=== PATIENT | male | born 1965 | race Caucasian/White ===

== ENCOUNTER 2019-11-22 18:05 | Emergency (ER) | payer BC, SELFPAY ==
[2019-11-22 18:07] VITALS: BP 125/91; PULSE 84; RESP 16; TEMP 38.1; O2SAT 100
--- NOTE | 2019-11-22 19:21 | ED.EAR ---
HPI - Ear Problem General Chief complaint: Ear Stated complaint: left ear pain/fever Time Seen by Provider: 11/22/19 18:43 Source: patient Mode of arrival: ambulatory Limitations: no limitations History of Present Illness HPI Narrative: This is a 54-year-old male who presents the emergency department for left ear pain x2 days. Reports decreased hearing in the ear. Also reports some mild fever. Denies drainage. MD Complaint: decreased hearing Location: left ear Duration: constant Severity: mild Context: Reports recent swimming Discharge from ear: Reports no Associated symptoms ear: fever Treatment prior to arrival: none Related Data Home Medications Medication Instructions Recorded Confirmed No Home Medications 11/22/19 11/22/19 Allergies Allergy/AdvReac Type Severity Reaction Status Date / Time bee venom protein (honey bee) AdvReac Anaphylaxis Verified 11/22/19 18:18 [bees] Penicillins AdvReac Anaphylaxis Verified 11/22/19 18:18 Review of Systems Review of Systems: Narrative: CONSTITUTIONAL: Reports fever ENT: Reports otalgia. All systems reviewed & are unremarkable except as noted in HPI and below PMFSH Past Medical History Medical History (Updated 11/22/19 @ 19:29 by Gloria Montana PA-C) No active medical problems Social History Social History (Updated 11/22/19 @ 19:26 by Gloria Montana PA-C) Substance use: never Exam Narrative: Exam Narrative: GENERAL: Well-appearing, well-nourished, and in no acute distress. HEAD: Normocephalic, atraumatic. EYES: EOMI. ENT: Right external auditory canal normal. Left external auditory canal with erythema and edema NECK: Supple. No adenopathy or masses. EXTREMITIES: Normal range of motion. No edema. SKIN: Warm, dry, no rash. NEURO: No focal deficits. Alert and oriented x3. PSYCH: Normal mood and affect Course Vital Signs Vital signs: Vital Signs Temperature 100.5 F H 11/22/19 18:07 Pulse Rate 84 11/22/19 18:07 Respiratory Rate 16 11/22/19 18:07 Blood Pressure 125/91 H 11/22/19 18:07 Pulse Oximetry 100 11/22/19 18:07 Temperature 100.5 F H 11/22/19 18:07 Pulse Rate 84 11/22/19 18:07 Respiratory Rate 16 11/22/19 18:07 Blood Pressure 125/91 H 11/22/19 18:07 Pulse Oximetry 100 11/22/19 18:07 Medical Decision Making MDM Narrative Medical decision making narrative: Patient presents the emergency department for left ear discomfort x2 days. Exam consistent with otitis externa. Patient will be started on antibiotic drops. Will be given primary care doctor for follow-up. Was given warnings to return to the ER Vital Signs Vital Signs: Vital Signs Temperature 100.5 F H 11/22/19 18:07 Pulse Rate 84 11/22/19 18:07 Respiratory Rate 16 11/22/19 18:07 Blood Pressure 125/91 H 11/22/19 18:07 Pulse Oximetry 100 11/22/19 18:07 Temperature 100.5 F H 11/22/19 18:07 Pulse Rate 84 11/22/19 18:07 Respiratory Rate 16 11/22/19 18:07 Blood Pressure 125/91 H 11/22/19 18:07 Pulse Oximetry 100 11/22/19 18:07 Critical Care Time Critical Care Time Critical Care Time: No Discharge Plan Discharge Clinical Impression: Otitis externa Qualifiers: Otitis externa type: unspecified type Chronicity: acute Laterality: left Qualified Code(s): H60.502 - Unspecified acute noninfective otitis externa, left ear Patient Disposition: Home, Self-Care Condition: Stable Instructions: Antibiotic Form, Otitis Externa (ED) Additional Instructions: Return to the emergency department if you experience worsening symptoms, or any other concerns Apply 3 drops into your left ear twice daily for 1 week. Tylenol or ibuprofen as needed for pain Follow-up with primary care doctor Prescriptions: No Action No Home Medications RF: 0 Follow-up/Referrals: PHYSICIAN,FORENSIC PSYCHIATRIST [Primary Care Provider] - Abdullahi Thorne MD [Physician] - 2 Days
[2019-11-22] MEDS: ACETAMINOPHEN 500 MG TABLET 1000 MG PO (19:32)
[2019-11-22] MEDS: CIPROFLOXACIN HC OTIC 10 ML 3 DROP LEFT EAR (20:15)
[2019-11-22 20:21] VITALS: PULSE 80; RESP 18; O2SAT 100
== END 2019-11-22 20:23 | disposition home or self-care (01) ==
PROVIDERS: Emergency Provider Emergency Medicine
DX: H60.502 Unspecified acute noninfective otitis externa, left ear (principal)
CPT/HCPCS: 99283; A9270